=== PATIENT | female | born 1955 ===

== ENCOUNTER 2017-01-29 11:15 | Emergency (ER) | payer SELFPAY ==
--- NOTE | 2017-01-29 12:29 | UC ---
Skin Complaint HPI - HPI Summary HPI Summary: Patient presents to the clinic with complaints of rash that started on her hands , and now has spread to her face, neck, abdomen, arms, shoulders and lower legs. She states it started after she went to [place], and was working outside in the garden. She describes the rash as beginning with blisters that break and it becomes very itchy and tingly. She denies any pain, the rash is scattered and not in a specific pattern. She has been applying hydrocortisone cream with minimal relief. She denies any joint pain, fever or chills, recent illness or ill contacts. - History of Current Complaint Chief Complaint: UCRas Time Seen by Provider: 01/29/17 12:06 Stated Complaint: RASH Hx Obtained From: Patient ?: No Onset/Duration: Gradual Onset, Lasting Days Skin Exposure Onset/Duration: Days Ago Timing: Constant Onset Severity: Moderate Current Severity: Moderate Location: Diffuse, Face, Hand (Right), Hand (Left), Other - abdomen, shoulders, neck and face. Character: Pruritus, Redness Aggravating: Touch Alleviating: OTC Meds, OTC Creams/Salves Associated Signs & Symptoms: Positive: Negative - Allergy/Home Medications Allergies/Adverse Reactions: Allergies Allergy/AdvReac Type Severity Reaction Status Date / Time No Known Allergies Allergy Verified 01/29/17 11:27 Review of Systems Constitutional: Negative Skin: Rash Eyes: Negative ENT: Negative Respiratory: Negative Cardiovascular: Negative Gastrointestinal: Negative Genitourinary: Negative Motor: Negative Neurovascular: Negative Musculoskeletal: Negative Neurological: Negative Is Patient Immunocompromised?: No All Other Systems Reviewed And Are Negative: Yes PMH/Surg Hx/FS Hx/Imm Hx Previously Healthy: Yes - Surgical History Surgical History: Yes Surgery Procedure, Year, and Place: appy - Family History Known Family History: Positive: Diabetes - Social History Alcohol Use: Occasionally Substance Use Type: None Smoking Status (MU): Never Smoked Tobacco Physical Exam Triage Information Reviewed: Yes Appearance: Well-Appearing Vital Signs: Initial Vital Signs Temp 98.8 F 01/29/17 11:28 Pulse 81 01/29/17 11:28 Resp 76 01/29/17 11:28 BP 136/79 01/29/17 11:28 Pulse Ox 100 01/29/17 11:28 Vital Signs Reviewed: Yes Eye Exam: Normal ENT Exam: Normal Neck exam: Normal Skin: Positive: Other Course/Dx - Course Course Of Treatment: Patient present with a rash that occurred following gardening which is in various stages, some areas are vescilar, other circular and inflammmed and other linear. These findings are consistent with poison vale/ oak. I treated with oral and topical steriods. I do not feel the findings are consistent with herpes zoster as they do not follow a dermatonal pattern, nor is it painful. the patient is not immunocompromised. The medications were reviewed with the patient, she was discharged in stable condition, normal vital signs, and afebrile. - Differential Diagnoses - Skin Complaint Differential Diagnoses: Poison Vale - Diagnoses Provider Diagnoses: posion vale Discharge - Discharge Plan Condition: Stable Disposition: HOME Prescriptions: Fluticasone Propionate 0.005 % EX QID #1 oin predniSONE TAB* [Deltasone TAB*] 20 mg PO BID #10 tab Patient Education Materials: Poison [place] (ED) Referrals: Mariana Reilly NP [Primary Care Provider] -
== END 2017-01-29 12:35 | disposition home or self-care (01) ==
LOC: UCEAST 11:15
DX: L23.7 Allergic contact dermatitis due to plants, except food (principal)
CPT/HCPCS: 99202; G0463